=== PATIENT | female | born 1945 | race Caucasian/White ===

== ENCOUNTER 2019-06-30 15:30 | Inpatient (IN) | payer MEDICARE ==
[~2019-06-30] VITALS: Ht 167.6 cm; Wt 67.1 kg
[2019-06-30 15:40] VITALS: BP 127/78
[2019-06-30] MEDS ORDERED: ACETAMINOPHEN 325 MG TABLET PO PRN (17:00)
[2019-06-30] MEDS ORDERED: MELATONIN 5 MG TABLET PO PRN (17:00)
[2019-06-30] MEDS ORDERED: CefTRIAXone 1 GM/DEXTROSE 50 ML IV SCH (17:00)
[2019-06-30] MEDS: TAMSULOSIN HCL 0.4 MG CAPSULE PO SCH (20:11)
[2019-06-30] MEDS: DOCUSATE SODIUM 100 MG CAPSULE PO SCH (20:11)
[2019-06-30] MEDS: SULFAMETHOX/TRIMETH DS 800-160 MG/TABLET PO SCH (20:11)
[2019-06-30] MEDS: ATORVASTATIN CALCIUM 40 MG TABLET PO SCH (20:11)
[2019-06-30] MEDS: HEPARIN SODIUM,PORCINE 5,000 UNITS/ML VIAL SQ SCH (20:11)
[2019-07-01 07:16] LABS: BASOPHILS % (AUTO) 0.7 % (0.0-2.0); EOSINOPHILS % (AUTO) 2.8 % (1.0-6.0); HEMATOCRIT 35.5 % (36-46); LYMPHOCYTES # (AUTO) 1.8 K/uL (1.0-4.8); LYMPHOCYTES % (AUTO) 22.2 % (22.0-44.0); MEAN CORPUSCULAR HEMOGLOBIN 29.8 pg (26.0-34.0); MEAN CORPUSCULAR HGB CONC 33.7 G/dL (31.0-37.0); MEAN CORPUSCULAR VOLUME 88 fL (80-100); MONOCYTES # (AUTO) 0.6 K/uL (0.1-1.0); MONOCYTES % (AUTO) 7.4 % (2.0-9.0); NEUTROPHILS # (AUTO) 5.4 K/uL (1.8-7.7); NEUTROPHILS % (AUTO) 66.9 % (40.0-70.0); PLATELET COUNT (AUTO) 240 K/uL (150-450); RED BLOOD CELL COUNT(AUTO) 4.01 MIL/uL (4.00-5.20); RED CELL DISTRIBUTION WIDTH 13.3 % (11.5-14.5)
[2019-07-01 07:29] LABS: ALANINE AMINOTRANSFERASE 29 U/L (12-78); ALBUMIN 3.9 g/dL (3.4-5.0); ALKALINE PHOSPHATASE 80 U/L (46-116); ANION GAP 8 mmol/L (8-16); ASPARTATE AMINOTRANSFERASE 19 U/L (15-37); BILIRUBIN,TOTAL 0.6 mg/dL (0.1-1.0); CALCIUM, TOTAL 9.5 mg/dL (8.8-10.5); CARBON DIOXIDE 28 mmol/L (22-29); CHLORIDE 106 mmol/L (98-107); CREATININE 0.83 mg/dL (0.60-1.30); GLUCOSE,RANDOM 107 mg/dL (70-110); POTASSIUM 3.8 mmol/L (3.5-5.1); SODIUM SERUM 142 mmol/L (136-145); TOTAL PROTEIN, SERUM 7.1 g/dL (6.4-8.2); UREA NITROGEN, BLOOD 8 mg/dL (7-18)
[2019-07-01 07:30] LABS: GLOMERULAR FILTR. RATE CALC > 60 mL/min (>60)
[2019-07-01 08:26] VITALS: BP 138/67
[2019-07-01] MEDS: LOSARTAN POTASSIUM 50 MG TABLET PO SCH (08:30)
[2019-07-01] MEDS: DOCUSATE SODIUM 100 MG CAPSULE PO SCH ×2 (08:30→20:06)
[2019-07-01] MEDS: SULFAMETHOX/TRIMETH DS 800-160 MG/TABLET PO SCH ×2 (08:31→20:06)
[2019-07-01] MEDS: HEPARIN SODIUM,PORCINE 5,000 UNITS/ML VIAL SQ SCH ×2 (08:31→20:07)
[2019-07-01] MEDS ORDERED: MELATONIN 5 MG TABLET PO PRN (11:15)
[2019-07-01 15:30] VITALS: BP 152/76
[2019-07-01] MEDS: TAMSULOSIN HCL 0.4 MG CAPSULE PO SCH (20:06)
[2019-07-01] MEDS: ATORVASTATIN CALCIUM 40 MG TABLET PO SCH (20:06)
[2019-07-01 23:55] VITALS: BP 143/72
[2019-07-02 07:30] VITALS: BP 137/74
[2019-07-02] MEDS: LOSARTAN POTASSIUM 50 MG TABLET PO SCH (09:20)
[2019-07-02] MEDS: SULFAMETHOX/TRIMETH DS 800-160 MG/TABLET PO SCH ×2 (09:20→20:35)
[2019-07-02] MEDS: DOCUSATE SODIUM 250 MG CAPSULE PO SCH ×2 (09:20→20:35)
[2019-07-02] MEDS: HEPARIN SODIUM,PORCINE 5,000 UNITS/ML VIAL SQ SCH ×2 (09:21→20:35)
[2019-07-02 16:47] VITALS: BP 110/61
[2019-07-02] MEDS: TAMSULOSIN HCL 0.4 MG CAPSULE PO SCH (20:35)
[2019-07-02] MEDS: ATORVASTATIN CALCIUM 40 MG TABLET PO SCH (20:35)
[2019-07-02] MEDS: TraZODone HCL 50 MG TABLET PO SCH (20:35)
[2019-07-02] MEDS: SENNA 187 MG TABLET PO SCH (20:35)
[2019-07-02 23:30] VITALS: BP 121/60
[2019-07-03 07:38] VITALS: BP 122/70
[2019-07-03] MEDS: LOSARTAN POTASSIUM 50 MG TABLET PO SCH (08:12)
[2019-07-03] MEDS: SULFAMETHOX/TRIMETH DS 800-160 MG/TABLET PO SCH ×2 (08:12→19:59)
[2019-07-03] MEDS: DOCUSATE SODIUM 250 MG CAPSULE PO SCH ×2 (08:12→19:58)
[2019-07-03] MEDS: HEPARIN SODIUM,PORCINE 5,000 UNITS/ML VIAL SQ SCH ×2 (08:13→19:58)
[2019-07-03 15:59] VITALS: BP 129/77
[2019-07-03 19:55] VITALS: BP 109/59
[2019-07-03] MEDS: TAMSULOSIN HCL 0.4 MG CAPSULE PO SCH (19:58)
[2019-07-03] MEDS: ATORVASTATIN CALCIUM 40 MG TABLET PO SCH (19:58)
[2019-07-03] MEDS: TraZODone HCL 50 MG TABLET PO SCH (19:58)
[2019-07-03] MEDS: SENNA 187 MG TABLET PO SCH (19:58)
[2019-07-04 02:11] VITALS: BP 131/62
[2019-07-04 08:00] VITALS: BP 119/67
[2019-07-04] MEDS: DOCUSATE SODIUM 250 MG CAPSULE PO SCH ×2 (09:00→19:54)
[2019-07-04] MEDS: HEPARIN SODIUM,PORCINE 5,000 UNITS/ML VIAL SQ SCH ×2 (09:50→19:54)
[2019-07-04] MEDS: SULFAMETHOX/TRIMETH DS 800-160 MG/TABLET PO SCH (09:50)
[2019-07-04] MEDS: LOSARTAN POTASSIUM 50 MG TABLET PO SCH (09:50)
[2019-07-04 16:00] VITALS: BP 128/71
[2019-07-04] MEDS: SENNA 187 MG TABLET PO SCH (19:54)
[2019-07-04] MEDS: ATORVASTATIN CALCIUM 40 MG TABLET PO SCH (19:54)
[2019-07-04] MEDS: TraZODone HCL 50 MG TABLET PO SCH (19:54)
[2019-07-04] MEDS: TAMSULOSIN HCL 0.4 MG CAPSULE PO SCH (19:54)
[2019-07-04 23:09] VITALS: BP 98/56
[2019-07-05 07:30] VITALS: BP 108/61
[2019-07-05] MEDS: DOCUSATE SODIUM 250 MG CAPSULE PO SCH ×2 (08:12→20:23)
[2019-07-05] MEDS: LOSARTAN POTASSIUM 50 MG TABLET PO SCH (08:13)
[2019-07-05] MEDS: HEPARIN SODIUM,PORCINE 5,000 UNITS/ML VIAL SQ SCH ×2 (08:13→20:23)
[2019-07-05 11:33] LABS: APPEARANCE,URINE CLEAR (CLEAR); BILIRUBIN,URINE NEGATIVE (NEGATIVE); GLUCOSE, URINE (UA) NEGATIVE (NEGATIVE); KETONES,URINE NEGATIVE (NEGATIVE); LEUKOCYTE ESTERASE ,URINE TRACE (NEGATIVE); NITRATE,URINE NEGATIVE (NEGATIVE); OCCULT BLOOD,URINE NEGATIVE (NEGATIVE); PH,URINE 5.5 (5.0-8.0); PROTEIN,URINE NEGATIVE (NEGATIVE); UROBILINOGEN,URINE 0.2 mg/dL (<=1.0)
[2019-07-05 12:16] LABS: WBC,URINE 0-2 /HPF (0-5)
[2019-07-05 12:17] LABS: BACTERIA,URINE Rare /HPF (None Seen); RBC,URINE None Seen /HPF (0-2)
[2019-07-05 12:18] LABS: YEAST,URINE None Seen /HPF (None Seen)
[2019-07-05 12:19] LABS: RENAL EPITHELIAL CELLS,URINE Rare /LPF (None Seen)
[2019-07-05 12:20] LABS: SQUAMOUS EPITHELIAL CELL,UR Many /LPF (None Seen)
[2019-07-05 15:19] VITALS: BP 120/87
[2019-07-05] MEDS: TAMSULOSIN HCL 0.4 MG CAPSULE PO SCH (20:23)
[2019-07-05] MEDS: ATORVASTATIN CALCIUM 40 MG TABLET PO SCH (20:23)
[2019-07-05] MEDS: TraZODone HCL 50 MG TABLET PO SCH (20:23)
[2019-07-05] MEDS: SENNA 187 MG TABLET PO SCH (20:23)
[2019-07-05] MEDS ORDERED: TAMS-13 PO (22:38)
[2019-07-05] MEDS ORDERED: TRAZ-252 PO (22:38)
[2019-07-05] MEDS ORDERED: ATOR40TA28 PO (22:38)
[2019-07-05] MEDS ORDERED: LOSA-88 PO (22:38)
[2019-07-05] MEDS ORDERED: DOCU-342 PO (22:38)
[2019-07-05 23:34] VITALS: BP 143/62
[2019-07-06 07:26] VITALS: BP 131/75
[2019-07-06] MEDS: DOCUSATE SODIUM 250 MG CAPSULE PO SCH ×2 (07:53→20:07)
[2019-07-06] MEDS: LOSARTAN POTASSIUM 50 MG TABLET PO SCH (07:54)
[2019-07-06] MEDS: HEPARIN SODIUM,PORCINE 5,000 UNITS/ML VIAL SQ SCH (07:54)
[2019-07-06] MEDS: MULTIVITAMINS WITH MINERALS, THERAPEUTIC TABLET PO SCH (11:21)
[2019-07-06 15:00] VITALS: BP 122/69
[2019-07-06] MEDS: TAMSULOSIN HCL 0.4 MG CAPSULE PO SCH (20:07)
[2019-07-06] MEDS: SENNA 187 MG TABLET PO SCH (20:07)
[2019-07-06] MEDS: TraZODone HCL 50 MG TABLET PO SCH (20:07)
[2019-07-06] MEDS: ATORVASTATIN CALCIUM 40 MG TABLET PO SCH (20:07)
[2019-07-07 00:32] VITALS: BP 117/57
[2019-07-07 07:18] VITALS: BP 115/66
[2019-07-07] MEDS: DOCUSATE SODIUM 250 MG CAPSULE PO SCH ×2 (07:33→20:38)
[2019-07-07] MEDS: MULTIVITAMINS WITH MINERALS, THERAPEUTIC TABLET PO SCH (07:34)
[2019-07-07] MEDS: LOSARTAN POTASSIUM 50 MG TABLET PO SCH (07:34)
[2019-07-07 15:24] VITALS: BP 143/85
[2019-07-07] MEDS: TraZODone HCL 50 MG TABLET PO SCH (20:38)
[2019-07-07] MEDS: ATORVASTATIN CALCIUM 40 MG TABLET PO SCH (20:38)
[2019-07-07] MEDS: TAMSULOSIN HCL 0.4 MG CAPSULE PO SCH (20:38)
[2019-07-07] MEDS: SENNA 187 MG TABLET PO SCH (20:38)
[2019-07-07 20:58] VITALS: BP 129/68
[2019-07-07 23:31] VITALS: BP 112/55
[2019-07-08 07:32] VITALS: BP 123/73
[2019-07-08] MEDS: LOSARTAN POTASSIUM 50 MG TABLET PO SCH (07:40)
[2019-07-08] MEDS: MULTIVITAMINS WITH MINERALS, THERAPEUTIC TABLET PO SCH (07:40)
[2019-07-08] MEDS: DOCUSATE SODIUM 250 MG CAPSULE PO SCH ×2 (07:40→20:54)
[2019-07-08 15:50] VITALS: BP 144/75
[2019-07-08] MEDS: ATORVASTATIN CALCIUM 40 MG TABLET PO SCH (20:54)
[2019-07-08] MEDS: SENNA 187 MG TABLET PO SCH (20:54)
[2019-07-08] MEDS: TraZODone HCL 50 MG TABLET PO SCH (20:54)
[2019-07-08] MEDS: TAMSULOSIN HCL 0.4 MG CAPSULE PO SCH (20:54)
[2019-07-08 23:52] VITALS: BP 127/69
[2019-07-09 07:02] VITALS: BP 110/62
[2019-07-09] MEDS: DOCUSATE SODIUM 250 MG CAPSULE PO SCH (08:10)
[2019-07-09] MEDS: MULTIVITAMINS WITH MINERALS, THERAPEUTIC TABLET PO SCH (08:10)
[2019-07-09] MEDS: LOSARTAN POTASSIUM 50 MG TABLET PO SCH (08:10)
[2019-07-09] MEDS ORDERED: MULT-711 PO (10:15)
== END 2019-07-09 13:21 | disposition home or self-care (01) | DRG 86 ==
LOC: 2WR 15:30
PROVIDERS: ADMIT Physical Medicine & Rehabilitation; ATTEND Physical Medicine & Rehabilitation
DX: S06.340A Traumatic hemorrhage of right cerebrum without loss of consciousness, initial encounter (principal); G81.94 Hemiplegia, unspecified affecting left nondominant side; I10 Essential (primary) hypertension; I25.10 Atherosclerotic heart disease of native coronary artery without angina pectoris; Z90.12 Acquired absence of left breast and nipple; Z87.440 Personal history of urinary (tract) infections
CPT/HCPCS: 87081; 92507; 97110; 97112; 97116; 97162; 97166; 97530; 97535; 99368; J0696; J1644